=== PATIENT | female | born 1965 | race Caucasian/White ===

== ENCOUNTER 2017-01-13 21:26 | Emergency (ER) | payer BC, OTHER ==
[2017-01-13] MEDS ORDERED: ACYCLOVIR 800 MG TABLET ONE (22:00)
[2017-01-13] MEDS ORDERED: ACYCLOVIR 800 MG TABLET PO ONE (22:00)
--- NOTE | 2017-01-13 22:02 | ERNOTE ---
Integumentary HPI - General Presenting Symptoms: rash Time Seen by Provider: 01/13/17 21:34 Source: patient - Immun/Allergies/Home Medications Immunizations: IMMUNIZATION HX Immunizations Up to Date No Allergies/Adverse Reactions: Allergies Allergy/AdvReac Type Severity Reaction Status Date / Time No Known Allergies Allergy Unverified 01/13/17 21:33 Home Medications: HOME MEDICATIONS valACYclovir HCL [Valtrex] 1,000 mg PO TID #21 tab 01/13/17 [Last Taken Unknown] - Pain Pain Score: 3 - History of Present Illness Narrative: Onset of painful rash on the right upper back and right breast yesterday Location: Reports: torso Quality: Reports: painful Severity: mild Exposure: Reports: no cause identified Associated Symptoms: Reports: denies symptoms Review of Systems - Review of Systems Constitutional: Absent: recent illness, fever, chills EYE: Present: no symptoms reported ENT: Present: no symptoms reported Respiratory: Absent: cough Cardiology: Present: no symptoms reported Gastrointestinal/Abdominal: Present: no symptoms reported Genitourinary: Present: no symptoms reported Musculoskeletal: Present: muscle pain - for 24 hours in the region of the rash Neurological: Absent: numbness, tingling Endocrine: Present: no symptoms reported Hematologic/Lymphatic: Present: no symptoms reported Psych: Present: no symptoms reported - Patient's Past Medical History Patient History - Medical: No pertinent hx Patient History - Cardiac/Respiratory: No pertinent hx Patient History - Cancer: No Hx of Cancer Patient History - Surgical Procedures: No surgical history - Social History Living Situations: home Smoking Status: Never smoker Patient requests Smoking Cessation Consult: No Initiate information on Smoking Cessation: No Alcohol Use: none Drug Use: none - Immunizations Immunizations Up to Date: No Physical Exam - Physical Exam General Appearance: Present: wd/wn, alert, no apparent distress Eye Exam: Normal inspection: bilateral Neck: Present: normal inspection Respiratory: Present: no respiratory distress, no accessory muscle use Back Exam: Present: normal range of motion, no CVA tenderness, no vertebral tenderness Extremity Exam: Present: normal range of motion, no edema Neurological Exam: Present: oriented, normal mood/affect, no motor/sensory deficits Skin Exam: Present: skin rash - papular on the right thoracic area approx T6-7 dermatomal pattern. No vesicles, no significant erythema, minimal tenderness, no crusting. Extends to the axilla with one macule in the right axilla. Right breast shows mulitple papules around the areola, again no vesicles or erythema. Lymphatic Exam: Present: no adenopathy ED Progress - Vital Signs Vital Signs: Vital Signs 01/13/17 21:30 Temperature 36.6 C Pulse Rate 70 Respiratory 20 Rate Blood Pressure 102/72 O2 Sat by Pulse 98 Oximetry - Progress/Reassessment Chief Complaint: Rash Progress Note-Subjective: 01/13/17 22:08 Hospital formulary does not have Valacyclovir so a dose of Acyclovir 800mg was given and one tablet to take in the morning. Departure Clinical Impression: Herpes zoster dermatitis - Departure Disposition: Home Follow Up Needed Instructions: Shingles, [id number], Postherpetic Neuralgia Additional Instructions: Take the additional dose given from the ER first thing in the morning. Begin the prescription at noon. See Dr. Lara in one week to follow up on your progress Referrals: Adrianna Lara MD [Primary Care Provider] - Prescriptions: valACYclovir HCL [Valtrex] 1,000 mg PO TID #21 tab
[2017-01-13] MEDS ORDERED: valACYclovir HCL 500 MG TABLET PO SCH (22:15)
[2017-01-13 22:19] VITALS: BP 127/80
== END 2017-01-13 22:10 | disposition home or self-care (01) ==
LOC: ER 21:26
DX: B02.8 Zoster with other complications (principal); L30.8 Other specified dermatitis